=== PATIENT | female | born 1990 | race African-American/Black ===

== ENCOUNTER 2017-01-09 14:11 | Outpatient (CLI) | payer BC, MEDICAID | END 2017-01-09 15:40 | disposition admitted as inpatient to this hospital (09) | LOC: LC 14:11 | PROVIDERS: ATTEND Obstetrics & Gynecology | PROC: 4A1HXCZ Monitoring of Products of Conception, Cardiac Rate, External Approach (ICD-10-PCS; principal; 2017-01-09) | DX: Z34.93 Encounter for supervision of normal pregnancy, unspecified, third trimester (principal); Z36 Encounter for antenatal screening of mother; Z3A.35 35 weeks gestation of pregnancy | CPT/HCPCS: 59025 ==

== ENCOUNTER 2017-01-12 17:27 | Outpatient (CLI) | payer BC, MEDICAID ==
[2017-01-12 18:12] LABS: APPEARANCE,URINE SLIGHTLY-CLOUDY; BILIRUBIN,URINE NEGATIVE (NEGATIVE); GLUCOSE, URINE NEGATIVE (NEGATIVE); KETONES,URINE NEGATIVE (NEGATIVE); LEUKOCYTE ESTERASE,URINE TRACE (NEGATIVE); NITRITE,URINE NEGATIVE (NEGATIVE); PROTEIN,URINE NEGATIVE (NEGATIVE); URINE SPECIFIC GRAVITY 1.008; UROBILINOGEN,URINE NEGATIVE mg/dL (<2.0)
[2017-01-12 18:30] LABS: URINE BARBITURATES SCREEN NEGATIVE; URINE METHADONE SCREEN NEGATIVE; URINE OPIATES LOW NEGATIVE; URINE PHENCYCLIDINE SCREEN NEGATIVE
[2017-01-12 18:52] LABS: ABSOLUTE EOSINOPHILS # (AUTO) 0.1 10^3/uL (0.0-0.6); ABSOLUTE LYMPHOCYTES (AUTO) 1.8 10^3/uL (0.5-4.7); ABSOLUTE MONOCYTES (AUTO) 0.7 10^3/uL (0.1-1.4); ABSOLUTE NEUT (AUTO) 9.5 10^3/uL (1.7-8.2); BASOPHILS % (AUTO) 0.3 % (0-2); EOSINOPHILS % (AUTO) 0.6 % (0-6); HEMATOCRIT 40.7 % (36.0-47.0); HEMOGLOBIN 13.1 g/dL (12.0-15.5); HGB HCT DIFFERENCE -1.4; LYMPHOCYTES % (AUTO) 15.2 % (13-45); MEAN CORPUSCULAR HEMOGLOBIN 27.3 pg (27.0-33.4); MEAN CORPUSCULAR HGB CONC 32.2 g/dL (32.0-36.0); MEAN CORPUSCULAR VOLUME 85 fl (80-97); RED BLOOD COUNT 4.79 10^6/uL (3.72-5.28); RED CELL DISTRIBUTION WIDTH 14.9 % (11.5-14.0); SEGMENTED NEUTROPHILS % (AUTO) 77.9 % (42-78); WHITE BLOOD COUNT 12.2 10^3/uL (4.0-10.5)
[2017-01-12 19:10] LABS: ALANINE AMINOTRANSFERASE 30 U/L (9-52); ALBUMIN 3.4 g/dL (3.5-5.0); ALKALINE PHOSPHATASE 176 U/L (38-126); ANION GAP 11 (5-19); ASPARTATE AMINO TRANSFERASE 24 U/L (14-36); BILIRUBIN,DIRECT 0.3 mg/dL (0.0-0.4); BILIRUBIN,TOTAL 0.4 mg/dL (0.2-1.3); BLOOD UREA NITROGEN 7 mg/dL (7-20); CALCIUM 9.6 mg/dL (8.4-10.2); CARBON DIOXIDE 22 mmol/L (22-30); CHLORIDE 106 mmol/L (98-107); CREATININE RESULT 0.57 mg/dL (0.52-1.25); GLUCOSE 75 mg/dL (75-110); LDH 364 U/L (313-618); POTASSIUM 4.5 mmol/L (3.6-5.0); SODIUM 138.5 mmol/L (137-145); TOTAL PROTEIN 6.5 g/dL (6.3-8.2)
[2017-01-12 20:12] LABS: URINE CREATININE 64.1 mg/dL (16-327); URINE PROTEIN 15.6 mg/dL (<12)
--- NOTE | 2017-01-12 20:25 | Non Stress Test Report ---
Non Stress Test Datetime Report Generated by CPN: 01/12/2017 20:25 DEMOGRAPHIC EGA NST: 35.6 EGA NST: 35.3 INDICATION Indication for Study: Ordered by Provider Indication for Study: Ordered by Provider (Annotations: Data stored by CPN on behalf of user) MONITORING Monitor Explained: Monitor Explained; Test Explained; Patient Verbalized Understanding Monitor Explained: Monitor Explained; Test Explained; Patient Verbalized Understanding Time on Monitor: 01/12/2017 17:44 Time on Monitor: 01/09/2017 14:27 Time off Monitor: 01/12/2017 19:51 Time off Monitor: 01/09/2017 15:37 NST Duration: 127 NST Duration: 70 NST INTERVENTIONS NST Interventions: PO Hydration NST Interventions: None Physician Notified NST: Dr Harris BABY A: [id number] BABY A Movement : Present Movement : Present Contraction Frequency : irregular Contraction Frequency : none FHR Baseline : 135 FHR Baseline : 140 Accelerations : 15X15 Accelerations : 15X15 Decelerations : None Decelerations : None Variability : Moderate 6-25bpm Variability : Moderate 6-25bpm NST Review: Meets Criteria for Reactive NST NST Review: Meets Criteria for Reactive NST NST Review and Verified By : Shaheed Rachel RN NST Review and Verified By : Homar SEVERINO RN NST Results: Reactive NST Results: Reactive NST Results: Reactive NST REPORT Report Trigger: Send Report
[2017-01-13 21:57] LABS: URINE PROTEIN 8.7 mg/dL (<12)
== END 2017-01-12 20:01 | disposition home or self-care (01) ==
LOC: LC 17:27
PROVIDERS: ATTEND Obstetrics & Gynecology
DX: O47.9 False labor, unspecified (principal)
CPT/HCPCS: 36415; 59025; 80053; 80307; 81001; 82570; 83615; 84156; 84550; 85025

== ENCOUNTER 2017-01-30 20:43 | Inpatient (IN) | payer BC, MEDICAID ==
[2017-01-30] MEDS ORDERED: RINGERS SOLUTION,LACTATED 300 ML IV ONE (20:59)
[2017-01-30] MEDS ORDERED: MAG HYDROX/AL HYDROX/SIMETH SUSP 30 ML UDCUP PO PRN (20:59)
[2017-01-30] MEDS ORDERED: ACETAMINOPHEN 325 MG TABLET PO PRN (20:59)
[2017-01-30] MEDS ORDERED: RINGERS SOLUTION,LACTATED 1,000 ML IV PRN (20:59)
[2017-01-30] MEDS ORDERED: DINOPROSTONE 10 MG VAGINAL INSERT.SR PV ONE (20:59)
[2017-01-30] MEDS ORDERED: ZOLPIDEM TARTRATE 5 MG TABLET PO PRN (20:59)
[2017-01-30] MEDS ORDERED: DINOPROSTONE 10 MG VAGINAL INSERT.SR ONE (21:51)
[2017-01-30 21:56] LABS: ABSOLUTE MONOCYTES (AUTO) 0.5 10^3/uL (0.1-1.4); ABSOLUTE NEUT (AUTO) 10.1 10^3/uL (1.7-8.2); BASOPHILS % (AUTO) 0.2 % (0-2); EOSINOPHILS % (AUTO) 0.3 % (0-6); HEMATOCRIT 39.1 % (36.0-47.0); HEMOGLOBIN 12.9 g/dL (12.0-15.5); HGB HCT DIFFERENCE -0.4; LYMPHOCYTES % (AUTO) 15.8 % (13-45); MEAN CORPUSCULAR HEMOGLOBIN 28.1 pg (27.0-33.4); MEAN CORPUSCULAR HGB CONC 32.8 g/dL (32.0-36.0); MEAN CORPUSCULAR VOLUME 86 fl (80-97); RED BLOOD COUNT 4.57 10^6/uL (3.72-5.28); RED CELL DISTRIBUTION WIDTH 15.9 % (11.5-14.0); SEGMENTED NEUTROPHILS % (AUTO) 79.7 % (42-78); WHITE BLOOD COUNT 12.7 10^3/uL (4.0-10.5)
[2017-01-30 22:07] LABS: APPEARANCE,URINE CLEAR; BILIRUBIN,URINE NEGATIVE (NEGATIVE); GLUCOSE, URINE NEGATIVE (NEGATIVE); KETONES,URINE NEGATIVE (NEGATIVE); LEUKOCYTE ESTERASE,URINE TRACE (NEGATIVE); NITRITE,URINE NEGATIVE (NEGATIVE); PROTEIN,URINE NEGATIVE (NEGATIVE); URINE SPECIFIC GRAVITY 1.006; UROBILINOGEN,URINE NEGATIVE mg/dL (<2.0)
[2017-01-30 22:10] LABS: ALANINE AMINOTRANSFERASE 20 U/L (9-52); ALBUMIN 3.3 g/dL (3.5-5.0); ALKALINE PHOSPHATASE 184 U/L (38-126); ANION GAP 14 (5-19); ASPARTATE AMINO TRANSFERASE 18 U/L (14-36); BILIRUBIN,DIRECT 0.2 mg/dL (0.0-0.4); BILIRUBIN,TOTAL 0.3 mg/dL (0.2-1.3); BLOOD UREA NITROGEN 6 mg/dL (7-20); CALCIUM 9.4 mg/dL (8.4-10.2); CARBON DIOXIDE 15 mmol/L (22-30); CHLORIDE 107 mmol/L (98-107); CREATININE RESULT 0.69 mg/dL (0.52-1.25); GLUCOSE 192 mg/dL (75-110); LDH 361 U/L (313-618); SODIUM 135.8 mmol/L (137-145); TOTAL PROTEIN 6.5 g/dL (6.3-8.2); URIC ACID 4.6 mg/dL (2.5-6.2)
[2017-01-30 22:38] LABS: URINE BARBITURATES SCREEN NEGATIVE; URINE METHADONE SCREEN NEGATIVE; URINE OPIATES LOW NEGATIVE; URINE PHENCYCLIDINE SCREEN NEGATIVE
[2017-01-31] MEDS ORDERED: MISOPROSTOL 0.1 MG TABLET ONE (12:30)
[2017-01-31] MEDS ORDERED: MISOPROSTOL 0.1 MG TABLET PO SCH (14:00)
[2017-01-31] MEDS ORDERED: DINOPROSTONE 10 MG VAGINAL INSERT.SR ONE (20:08)
[2017-01-31] MEDS ORDERED: ZOLPIDEM TARTRATE 5 MG TABLET ONE (23:16)
[2017-01-31] MEDS ORDERED: ZOLPIDEM TARTRATE 5 MG TABLET PO ONE (23:45)
[2017-02-01 09:22] LABS: ABSOLUTE LYMPHOCYTES (AUTO) 1.6 10^3/uL (0.5-4.7); ABSOLUTE MONOCYTES (AUTO) 0.4 10^3/uL (0.1-1.4); BASOPHILS % (AUTO) 0.3 % (0-2); EOSINOPHILS % (AUTO) 0.2 % (0-6); HEMATOCRIT 42.1 % (36.0-47.0); HEMOGLOBIN 13.9 g/dL (12.0-15.5); HGB HCT DIFFERENCE -0.4; LYMPHOCYTES % (AUTO) 12.5 % (13-45); MEAN CORPUSCULAR HEMOGLOBIN 28.1 pg (27.0-33.4); MEAN CORPUSCULAR HGB CONC 32.9 g/dL (32.0-36.0); MEAN CORPUSCULAR VOLUME 85 fl (80-97); MONOCYTES % (AUTO) 3.2 % (3-13); RED BLOOD COUNT 4.94 10^6/uL (3.72-5.28); RED CELL DISTRIBUTION WIDTH 15.9 % (11.5-14.0); SEGMENTED NEUTROPHILS % (AUTO) 83.8 % (42-78); WHITE BLOOD COUNT 13.1 10^3/uL (4.0-10.5)
[2017-02-01] MEDS ORDERED: OXYTOCIN/NORMAL SALINE 1,000 ML IV PRN (09:31)
[2017-02-01] MEDS ORDERED: RINGERS SOLUTION,LACTATED 300 ML IV ONE (09:31)
[2017-02-01] MEDS ORDERED: RINGERS SOLUTION,LACTATED 1,000 ML IV PRN (09:31)
[2017-02-01] MEDS ORDERED: OXYTOCIN/NORMAL SALINE 20 UNIT/1,000 ML RTUINJ ONE ×2 (09:31→19:43)
[2017-02-01 09:35] LABS: ALANINE AMINOTRANSFERASE 21 U/L (9-52); ALBUMIN 3.6 g/dL (3.5-5.0); ALKALINE PHOSPHATASE 198 U/L (38-126); ANION GAP 12 (5-19); ASPARTATE AMINO TRANSFERASE 21 U/L (14-36); BILIRUBIN,DIRECT 0.3 mg/dL (0.0-0.4); BILIRUBIN,TOTAL 0.6 mg/dL (0.2-1.3); BLOOD UREA NITROGEN 8 mg/dL (7-20); CALCIUM 10.1 mg/dL (8.4-10.2); CARBON DIOXIDE 18 mmol/L (22-30); CHLORIDE 106 mmol/L (98-107); CREATININE RESULT 0.74 mg/dL (0.52-1.25); GLUCOSE 152 mg/dL (75-110); LDH 381 U/L (313-618); POTASSIUM 4.1 mmol/L (3.6-5.0); SODIUM 136.4 mmol/L (137-145); URIC ACID 4.8 mg/dL (2.5-6.2)
--- NOTE | 2017-02-01 09:55 | L&D Progress Notes ---
PROGRESS NOTES Datetime Report Generated by CPN: 02/01/2017 09:55 PROGRESS NOTE Procedures: Sterile Vag Exam Plan: Continue Present Management; Induction Informed Consent Obtained: Vaginal Delivery; Induction of Labor; Risks, Benefits and Alternatives Discussed Vital Signs : Reviewed Comment: 26 yo admitted for GDM/GHTN EDC8 EGA 38.5 resolved polyhydramnios last 24 hour protein- 283 01/20/17 abdomen nontender FHTS 150s average variability cervidil removed cervical exam /-2 uterine ctxs irregular start pitocin after 1 hour from cervidil removal anticipate poc reviewed VAGINAL EXAM Dilatation: 3 Effacement: 80 Station: -2 MEMBRANES Membranes: Intact FETUS A FHR - Baseline: 155 Monitoring: External US Variability: Moderate 6-25bpm Accelerations: 15X15 Decelerations: None FHR Category: Category I : 38.5 Estimated Weight (gm): 4000 SIGNATURE SIGNATURE: [id number];14,[id number] SIGNATURE: [id number] Assignment: Ernestina Kumar MD Signature: with User ID: [email or web address] : with User ID: [email or web address]
--- NOTE | 2017-02-01 14:51 | L&D Progress Notes ---
PROGRESS NOTES Datetime Report Generated by CPN: 02/01/2017 14:51 PROGRESS NOTE Procedures: Sterile Vag Exam Plan: Continue Present Management Informed Consent Obtained: Vaginal Delivery; Risks, Benefits and Alternatives Discussed Vital Signs : Reviewed Comment: 26 yo admitted for GDM/ GHTN 38.5 ctxs q 2-3 min pitocin discontinued pt repositioned encouraged bladder emptying pain management discussed anticipate VAGINAL EXAM Dilatation: 3 Effacement: 90 Station: -1 FETUS A FHR - Baseline: 120 Monitoring: External US Variability: Moderate 6-25bpm Accelerations: 15X15 Decelerations: Late; Prolonged FHR Category: Category I : 38.5 FETUS C SIGNATURE: [id number];[id number] Assignment: Ernestina Kumar MD Signature: with User ID: [email or web address] : with User ID: [email or web address]
[2017-02-01] MEDS ORDERED: EPHEDRINE SULFATE INJ 50 MG/1 ML AMPULE ONE (15:19)
[2017-02-01] MEDS ORDERED: BUPIVACAINE HCL 0.25 % INJ/PF (2.5 MG/1 ML) 30 ML VIAL ONE (15:20)
[2017-02-01] MEDS ORDERED: FENTANYL/BUPIVACAINE/NS/PF 200 MCG/100 ML RTUINJ EPI ONE (15:20)
[2017-02-01] MEDS ORDERED: ACETAMINOPHEN 325 MG TABLET PO ONE (16:00)
[2017-02-01] MEDS ORDERED: ACETAMINOPHEN 325 MG TABLET ONE ×2 (16:04→17:46)
[2017-02-01] MEDS ORDERED: FENTANYL CITRATE INJ/PF 100 MCG/2 ML AMPUL ONE (17:30)
[2017-02-01] MEDS ORDERED: LIDOCAINE 2% INJ-PF (20 MG/ML) 10 ML AMPUL ONE (17:33)
[2017-02-01] MEDS ORDERED: FENTANYL CITRATE INJ/PF 100 MCG/2 ML AMPUL IV ONE (17:35)
--- NOTE | 2017-02-01 17:37 | L&D Progress Notes ---
PROGRESS NOTES Datetime Report Generated by CPN: 02/01/2017 17:36 PROGRESS NOTE Vital Signs : Reviewed Comment: pt reports increased urge to push epidural in place cervical exam 4/90/-1 FHTs reactive 120s pt repositioned fentanyl 100 mcg and epidural bolus for pain management FETUS A FHR - Baseline: 120 Monitoring: External US Variability: Moderate 6-25bpm Accelerations: 15X15 Decelerations: None FHR Category: Category I FETUS C SIGNATURE: [id number];14,[id number] Assignment: Ernestina Kumar MD Signature: with User ID: [email or web address] : with User ID: [email or web address]
[2017-02-01] MEDS ORDERED: MISOPROSTOL 0.2 MG TABLET ONE (19:43)
[2017-02-01] MEDS ORDERED: LIDOCAINE 1% INJ-PF (10 MG/ML) 30 ML SDV ONE (19:43)
[2017-02-02] MEDS ORDERED: ZOLPIDEM TARTRATE 5 MG TABLET PO PRN ×2 (01:15→10:05)
[2017-02-02] MEDS ORDERED: PSEUDOEPHEDRINE HCL 30 MG TABLET PO PRN (01:15)
[2017-02-02] MEDS ORDERED: MEASLES,MUMPS&RUBELLA VACC/PF 0.5 ML VIAL SUBCUT PRN ×2 (01:15→10:06)
[2017-02-02] MEDS ORDERED: OXYTOCIN/NORMAL SALINE 1,000 ML IV PRN (01:15)
[2017-02-02] MEDS ORDERED: DIBUCAINE 1% OINTMENT 28 GM TP PRN (01:15)
[2017-02-02] MEDS ORDERED: NA PHOS,M-B/NA PHOS,DI-BA (ADULT) 133 ML ENEMA PR PRN (01:15)
[2017-02-02] MEDS ORDERED: DIPHENHYDRAMINE HCL 25 MG CAPSULE PO PRN (01:15)
[2017-02-02] MEDS ORDERED: ACETAMINOPHEN 650 MG SUPP.RECT PR PRN (01:15)
[2017-02-02] MEDS ORDERED: BENZOCAINE/MENTHOL AEROSOL SPRAY 56 ML TOP PRN (01:15)
[2017-02-02] MEDS ORDERED: PROMETHAZINE HCL INJ 25 MG/1 ML VIAL IV PRN ×2 (01:15→15:12)
[2017-02-02] MEDS ORDERED: ACETAMINOPHEN WITH CODEINE #3 TABLET PO PRN ×2 (01:15)
[2017-02-02] MEDS ORDERED: PROMETHAZINE HCL 25 MG TABLET PO PRN (01:15)
[2017-02-02] MEDS ORDERED: PROMETHAZINE HCL 25 MG SUPP.RECT PR PRN (01:15)
[2017-02-02] MEDS ORDERED: DIPH/PERTUSS(ACELL)/TETANUS VAC/PF 0.5 ML SYR (>=10YO) IM PRN ×2 (01:15→10:05)
[2017-02-02] MEDS ORDERED: MAGNESIUM HYDROXIDE SUSP 30 ML UDCUP PO PRN ×2 (01:15→10:06)
[2017-02-02] MEDS ORDERED: GLYCERIN/WITCH HAZEL LEAF 1 EACH MED..PAD TP PRN (01:15)
--- NOTE | 2017-02-02 03:35 | Delivery Summary ---
Del Sum A-C Datetime Report Generated by CPN: 02/02/2017 03:35 DELIVERY PERSONNEL DELIVERY PERSONNEL: [id number];[id number];[id number] Delivery Doctor:: Ernestina Kumar MD Labor and Delivery Nurse:: Cynthia Mustafa RNwindows systems admin Nurse:: Ying Gupta RN Nursery Nurse:: Jasmine Quiroga RN MSN Nursery Nurse:: Ivanna Guadarrama RN Energy Derivatives Trader/DENTAL COORDINATOR: Montez Ertel, DENTAL COORDINATOR MATERNAL INFORMATION Delivery Anesthesia: Epidural Medications After Delivery: Pitocin Bolus-Please Comment; Other-Please Comment Meds After Delivery Comment: Cytotec 1000 mcg IL Estimated Blood Loss (ml): 350 Maternal Complications: None; Prolonged Second Stage > 2 Hrs Provider Comments: VFI delivered in DENISE presentation, no nuchal cord. Shoulders and body delivered w/o difficulty. Cord doubly clamped and cut and infant to maternal abd for NRP. Placenta delivered intact spontaneously. Unterine exploration negative. 1000mcg of cytotec given IL for uterine tone. Apgars and weight pending. Perineal laceration repaired with good hemostasis. FF at U. Mother and baby stable upon provider leaving the room. LABOR SUMMARY EDC: 02/10/2017 00:00 No. Babies in Womb: 1 Attempted: No Labor Anesthesia: Epidural LABOR INFORMATION Reason for Induction: Gestational Hypertension; Maternal Diabetes Onset of Labor: 02/01/2017 17:00 Complete Dilatation: 02/01/2017 20:39 Cervical Ripening Agents: Cervidil; Cytotec @ Oxytocin: Induction Group B Beta Strep: negative (Annotations: Data stored by [facility] on behalf of user) Steroids Given: None Reason Steroids Not Administered: Not Applicable MEMBRANES Membranes Rupture Method: Artificial Rupture of Membranes: 02/01/2017 12:45 Length of Rupture (hr): 11.77 Amniotic Fluid Color: Clear Amniotic Fluid Amount: Moderate Amniotic Fluid Odor: Normal STAGES OF LABOR Stage 1 hr: 3 Stage 1 min: 39 Stage 2 hr: 3 Stage 2 min: 52 Stage 3 hr: 0 Stage 3 min: 3 Total Time in Labor hr: 7 Total Time in Labor min: 34 VAGINAL DELIVERY Episiotomy: None Laceration Extension: Second Degree Laceration Type: Perineal Laceration Repair: Yes Laceration Repair Note: 2nd degree ML laceration repaired with good hemostasis Sponge Count Correct: N/A Sharps Count Correct: N/A CSECTION DELIVERY Primary Indication: N/A Secondary Indication: N/A CSection Incidence: N/A Labor: N/A Elective: N/A CSection Incision: N/A BABY A INFORMATION Infant Delivery Date/Time: 02/02/2017 00:31 Method of Delivery: Vaginal Born in Route : No : N/A Forceps: N/A Vacuum Extraction: N/A Shoulder Dystocia : No PRESENTATION/POSITION BABY A Presentation: Cephalic Cephalic Presentation: Vertex Vertex Position: Right Occipital Anterior Breech Presentation: N/A PLACENTA INFORMATION BABY A Placenta Delivery Time : 02/02/2017 00:34 Placenta Method of Delivery: Spontaneous Placenta Status: Delivered SCORES BABY A Heart Rate 1 min: >100 bpm Resp Effort 1 min: Good Cry Reflex Irritability 1 min: Cough or Sneeze or Pulls Away Muscle Tone 1 min: Active Motion Color 1 min: Body [place], Extremities Blue Resuscitation Effort 1 min: Tactile Stimulation SCORE 1 MIN: 9 Heart Rate 5 min: >100 bpm Resp Effort 5 min: Good Cry Reflex Irritability 5 min: Cough or Sneeze or Pulls Away Muscle Tone 5 min: Active Motion Color 5 min: Body [place], Extremities Blue Resuscitation Effort 5 min: Tactile Stimulation SCORE 5 MIN: 9 INFANT INFORMATION BABY A Gestational Age at Delivery: 38.6 Gestational Status: Early Term- 37- 38.6 Weeks Infant Outcome : Liveborn Condition : Stable Infant Sex: Female IDENTIFICATION BABY A Verification Date/Time: 02/02/2017 00:49 ID Band Number: [id number] Mother's Name Verified: Yes RN Verifying Infant: Keagan Gaytan RN Additional Verifying Personnel: D. Mar Yanne WEIGHT/LENGTH BABY A Birthweight (gm): 4120 Weight (lb): 9 Infant Weight (oz): 1 Length (in): 21.00 Length (cm): 53.34 CORD INFORMATION BABY A No. Cord Vessels: 3 Nuchal Cord : N/A Cord Blood Taken: Yes-For Eval (Mom's Blood Type - or O+) Suction: Mouth; Nose ASSESSMENT BABY A Skin to Skin: Yes Skin to Skin Time (min): 60 BABY B INFORMATION : N/A SIGNATURES Signature: with User ID: [email or web address]
--- NOTE | 2017-02-02 03:45 | Admission Physical ---
Datetime Report Generated by CPN: 02/02/2017 03:45 CURRENT ADMISSION Hx Assessment: The History has been Reviewed and is Current Chief Complaint: Scheduled Induction of Labor Indication for Induction: Gestational HTN; Other Indication for Induction- Other: Gestational diabetes-A2 Admit Plan: Initiate Labor Induction Protocol ALLERGIES Medication Allergies: No Medication Allergies: latex (01/30/2017) Medication Allergies: latex (01/09/2017) Medication Allergies: latex (02/16/2014) Latex: Latex Allergies Food Allergies: N/A Environmental Allergies: N/A OBSTETRICAL HISTORY EDC: 02/10/2017 00:00 : 1 Para: 0 Term: 0 : 0 SAB: 0 IAB: 0 Ectopic: 0 Livin Cesareans: 0 VBACs: 0 Multiple Births: 0 Gestational Diabetes: Yes Rh Sensitization: No Incompetent Cervix: No [place]: No Infertility: No ART Treatment: No Uterine Anomaly: No IUGR: No Hx Previous C/S: No Macrosomia: No Hx Loss/Stillborn: No PIH: No Hx : No Placenta Previa/Abruption: No Depression/PP Depression: No PTL/PROM: No Post Hemorrhage: No Current Procedures: Ultrasound; NST Obstetrical History Comments: G1--current (gDM, obesity (hx polyhydramnios-resolved) SEE RECORDS Alcohol: No Marijuana : No Cocaine: No Other Illicit Drugs: No Cigarettes: Former Smoker. [id number] Cigarette Comments: quit 2013 MEDICAL HISTORY Diabetes: Yes Diabetes Type: Gestational Diabetes Blood Transfusion: No Pulmonary Disease (Asthma, TB): No Breast Disease: No Hypertension: Yes Tender Coordinator Surgery: No Heart Disease: No Hosp/Surgery: No Autoimmune Disorder: No Anesthetic Complications: No Kidney Disease: No Abnormal Pap Smear: No Neuro/Epilepsy: No Psychiatric Disorders: No Other Medical Diseases: No Hepatitis/Liver Disease: No Significant Family History: No Varicosities/Phlebitis: No Trauma/Violence : No Thyroid Dysfunction: No INFECTIOUS HISTORY Gonorrhea: No Genital Herpes: No Chlamydia: No Tuberculosis: No Syphilis: No Hepatitis: No HIV/AIDS Exposure: No Rash or Viral Illness: No HPV: No PHYSICAL EXAM General: Normal HEENT: Normal Neurologic: Normal Thyroid: Normal Heart: Normal Lungs: Normal Breast: Normal Back: Normal Abdomen: Normal Genitourinary Exam: Normal Extremities: Normal DTRs: Normal Pelvic Type: Adequate Physical Exam Comments: EFW 8 1/2 pounds pt noncompliant with glyburide nl preeclampsia labs. FS 135 2 hr pp tonight GBS neg VAGINAL EXAM Dilatation: 3 Dilatation: 3 Effacement: 90 Effacement: 80 Station: -1 Station: -2 MEMBRANES Membranes: Intact FETUS A EGA: 38.4 Monitoring: External US FHR Category: Category I Estimated Weight (gm): 4000 Admit Comment: GHTN, GDM-cervidil induction PLANS FOR LABOR AND DELIVERY Labor and Delivery: None Pain Management: None; Natural Feeding Preference: Both Benefit of Breast Feed Discussed: Yes Circumcision: N/A INFORMED CONSENT Informed Consent Obtained: Vaginal Delivery; Risks, Benefits and Alternatives Discussed Informed Consent Obtained: Vaginal Delivery; Induction of Labor; Risks, Benefits and Alternatives Discussed Signature: with User ID: [email or web address]
[2017-02-02] MEDS ORDERED: IBUPROFEN 800 MG TABLET PO SCH (06:00)
--- NOTE | 2017-02-02 08:49 | PDOC PROGRESS REPORT ---
Subjective-OB Subjective: Post Delivery Day: 26 year old. Denies any needs at this time Doing well, feels good, scant bleeding, voiding, baby in room Physical Exam (OB) Vital Signs: Temp Pulse Resp BP Pulse Ox 98.3 F 115 H 20 126/79 H 100 02/02/17 03:11 02/02/17 03:11 02/02/17 03:11 02/02/17 03:11 02/02/17 03:11 - PIH/Pre-Eclampsia Clonus: Negative Headache: Absent Epigastric Pain: No Visual Changes: No - Lochia Lochia Amount: Small 10-25 ml Lochia Color: Rubra/Red - Abdomen Description: Firm, Round Hernia Present: No Fundal Description: Firm, Midline Fundal Height: u/u - u/2 Objective-Diagnostic Laboratory: 02/01/17 09:08 02/01/17 09:08 02/01/17 02/01/17 09:08 09:08 WBC 13.1 H RBC 4.94 Hgb 13.9 Hct 42.1 MCV 85 MCH 28.1 MCHC 32.9 RDW 15.9 H Plt Count 359 Seg Neutrophils % 83.8 H Lymphocytes % 12.5 L Monocytes % 3.2 Eosinophils % 0.2 Basophils % 0.3 Absolute Neutrophils 11.0 H Absolute Lymphocytes 1.6 Absolute Monocytes 0.4 Absolute Eosinophils 0.0 Absolute Basophils 0.0 Sodium 136.4 L Potassium 4.1 Chloride 106 Carbon Dioxide 18 L Anion Gap 12 BUN 8 Creatinine 0.74 Est GFR ( Amer) > 60 Est GFR (Non-Af Amer) > 60 Glucose 152 H Uric Acid 4.8 Calcium 10.1 Total Bilirubin 0.6 AST 21 ALT 21 Alkaline Phosphatase 198 H Total Protein 7.0 Albumin 3.6 Assessment and Plan(PN) - Assessment and Plan (1) Gestational [-induced] hypertension without significant proteinuria , third trimester Is this a current diagnosis for this admission?: Yes (2) Gestational diabetes mellitus Qualifiers: Gestational diabetes mellitus control: diet-controlled Is this a current diagnosis for this admission?: Yes (3) Vaginal delivery Is this a current diagnosis for this admission?: Yes - Time Spent with Patient Time with patient: Less than 15 minutes Medications reviewed and adjusted accordingly: Yes - Disposition Anticipated Discharge: Home Within: within 48 hours
[2017-02-02] MEDS: FERROUS SULFATE 325 MG TABLET PO SCH ×2 (09:55→17:22)
[2017-02-02] MEDS: SENNOSIDES/DOCUSATE 8.6-50 MG 1 EACH TABLET PO SCH (09:55)
[2017-02-02] MEDS: FAMOTIDINE 20 MG TABLET PO SCH ×2 (09:56→21:37)
[2017-02-02] MEDS: PRENATAL VITAMIN W-O CA NO5/FE FUMARATE/FA CAPSULE PO SCH (09:56)
[2017-02-02] MEDS: DOCUSATE SODIUM 100 MG CAPSULE PO SCH ×2 (09:56→17:22)
[2017-02-02 10:35] LABS: HEMATOCRIT 34.4 % (36.0-47.0); HGB HCT DIFFERENCE 0.1; MEAN CORPUSCULAR HEMOGLOBIN 28.1 pg (27.0-33.4); MEAN CORPUSCULAR HGB CONC 33.4 g/dL (32.0-36.0); MEAN CORPUSCULAR VOLUME 84 fl (80-97); RED BLOOD COUNT 4.08 10^6/uL (3.72-5.28); RED CELL DISTRIBUTION WIDTH 15.7 % (11.5-14.0); WHITE BLOOD COUNT 16.8 10^3/uL (4.0-10.5)
[2017-02-02 10:43] LABS: HEMOGLOBIN 11.5 g/dL (12.0-15.5)
[2017-02-02] MEDS: IBUPROFEN 800 MG TABLET PO SCH ×2 (13:44→21:37)
[2017-02-03] MEDS: IBUPROFEN 800 MG TABLET PO SCH ×3 (05:17→21:53)
[2017-02-03 08:02] LABS: HEMATOCRIT 35.2 % (36.0-47.0); HEMOGLOBIN 11.6 g/dL (12.0-15.5); HGB HCT DIFFERENCE -0.4; MEAN CORPUSCULAR HEMOGLOBIN 27.9 pg (27.0-33.4); MEAN CORPUSCULAR HGB CONC 32.9 g/dL (32.0-36.0); MEAN CORPUSCULAR VOLUME 85 fl (80-97); RED BLOOD COUNT 4.15 10^6/uL (3.72-5.28); RED CELL DISTRIBUTION WIDTH 16.4 % (11.5-14.0); WHITE BLOOD COUNT 12.4 10^3/uL (4.0-10.5)
--- NOTE | 2017-02-03 09:29 | PDOC PROGRESS REPORT ---
Subjective-OB Subjective: Post Delivery Day:1 26 year old. Denies any needs at this time, lochia is stable, pain well controlled, voiding without difficulty. Physical Exam (OB) Vital Signs: Temp Pulse Resp BP Pulse Ox 97.6 F 84 16 117/86 H 100 02/03/17 07:22 02/03/17 07:22 02/03/17 07:22 02/03/17 07:22 02/03/17 07:22 Intake & Output 02/02/17 02/03/17 02/04/17 06:59 06:59 06:59 Intake Total 392 Balance 392 - PIH/Pre-Eclampsia DTR's: 2 + Clonus: Negative Headache: Absent Epigastric Pain: No Visual Changes: No - Lochia Lochia Amount: Small 10-25 ml Lochia Color: Rubra/Red - Abdomen Description: Soft, Distended Hernia Present: No Fundal Description: Firm Fundal Height: u/u - u/2 Objective-Diagnostic Laboratory: 02/03/17 07:27 02/01/17 09:08 02/02/17 02/03/17 10:27 07:27 WBC 16.8 H 12.4 H RBC 4.08 4.15 Hgb 11.5 L D 11.6 L Hct 34.4 L 35.2 L MCV 84 85 MCH 28.1 27.9 MCHC 33.4 32.9 RDW 15.7 H 16.4 H Plt Count 294 306 Assessment and Plan(PN) - Assessment and Plan (1) Gestational [-induced] hypertension without significant proteinuria , third trimester Is this a current diagnosis for this admission?: YesPlan: monitor for s/sx (2) Gestational diabetes mellitus Qualifiers: Gestational diabetes mellitus control: diet-controlled Trimester: third trimester Qualified Code(s): O24.410 - Gestational diabetes mellitus in , diet controlled Is this a current diagnosis for this admission?: YesPlan: pp f/u (3) Vaginal delivery Is this a current diagnosis for this admission?: YesPlan: routine pp care - Time Spent with Patient Time with patient: Less than 15 minutes Critical Time spent with patient: Less than 15 minutes Medications reviewed and adjusted accordingly: Yes - Disposition Anticipated Discharge: Home Within: within 24 hours
[2017-02-03] MEDS: PRENATAL VITAMIN W-O CA NO5/FE FUMARATE/FA CAPSULE PO SCH (10:12)
[2017-02-03] MEDS: DOCUSATE SODIUM 100 MG CAPSULE PO SCH ×2 (10:12→17:34)
[2017-02-03] MEDS: FERROUS SULFATE 325 MG TABLET PO SCH ×2 (10:12→17:34)
[2017-02-03] MEDS: FAMOTIDINE 20 MG TABLET PO SCH ×2 (10:12→21:53)
[2017-02-03] MEDS: SENNOSIDES/DOCUSATE 8.6-50 MG 1 EACH TABLET PO SCH (10:12)
[2017-02-04] MEDS: IBUPROFEN 800 MG TABLET PO SCH (05:01)
[2017-02-04] MEDS: PRENATAL VITAMIN W-O CA NO5/FE FUMARATE/FA CAPSULE PO SCH (09:34)
[2017-02-04] MEDS: FAMOTIDINE 20 MG TABLET PO SCH (09:34)
[2017-02-04] MEDS: SENNOSIDES/DOCUSATE 8.6-50 MG 1 EACH TABLET PO SCH (09:34)
[2017-02-04] MEDS: FERROUS SULFATE 325 MG TABLET PO SCH (09:34)
[2017-02-04] MEDS: DOCUSATE SODIUM 100 MG CAPSULE PO SCH (09:34)
--- NOTE | 2017-02-04 09:36 | PDOC DISCHARGE SUMMARY ---
Final Diagnosis Discharge Date: 02/04/17 - Final Diagnosis (1) Gestational [-induced] hypertension without significant proteinuria , third trimester Is this a current diagnosis for this admission?: Yes (2) Gestational diabetes mellitus Is this a current diagnosis for this admission?: Yes (3) Vaginal delivery Is this a current diagnosis for this admission?: Yes Discharge Data - Discharge Medication Home Medications: Pnv No.122/Iron/Folic Acid [ Multi Tablet] 1 each PO DAILY 01/09/17 Docusate Sodium [Colace 100 mg Capsule] 100 mg PO BID #30 capsule 02/04/17 Ibuprofen [Motrin 800 mg Tablet] 800 mg PO Q8 #60 tablet 02/04/17 Gestational Age: 38.6 Reason(s) for Admission: Onset of Labor, PIH, Gestional Diabetes Procedures: NST Intrapartum Procedure(s): Spontaneous Vaginal Delivery Complication(s): Laceration-Perineal Laceration-Degree: 2nd - Data Baby 1 Female at 1 minute: 9 at 5 minutes: 9 Weight: 4120 kg Home with Mother: Yes Complications: No - Diagnosis Test Laboratory: Temp Pulse Resp BP Pulse Ox 97.9 F 82 16 133/81 H 100 02/04/17 07:29 02/04/17 07:29 02/04/17 07:29 02/04/17 07:29 02/04/17 07:29 01/30/17 01/30/17 02/01/17 09:25 20:58 09:08 RBC 4.57 4.94 Hgb 12.9 13.9 Hct 39.1 42.1 Urine Opiates Screen NEGATIVE 02/02/17 02/03/17 10:27 07:27 RBC 4.08 4.15 Hgb 11.5 L D 11.6 L Hct 34.4 L 35.2 L Urine Opiates Screen - Discharge information/Instructions Discharge Activity: Activity As Tolerated, Pelvic Rest, No tub bath Discharge Diet: Regular Disposition: HOME, SELF-CARE Follow up with: [facility] in: 1, Weeks
[2017-02-04 10:27] VITALS: BP 147/90
== END 2017-02-04 12:20 | disposition home or self-care (01) | DRG 775 ==
LOC: LR 20:43 → 2S 02-02 03:43
PROVIDERS: ADMIT Specialist; ATTEND Student in an Organized Health Care Education/Training Program
PROC: 4A1HXCZ Monitoring of Products of Conception, Cardiac Rate, External Approach (ICD-10-PCS; 2017-01-30)
PROC: 4A1HXCZ Monitoring of Products of Conception, Cardiac Rate, External Approach (ICD-10-PCS; 2017-01-30)
PROC: 3E0P7GC Introduction of Other Therapeutic Substance into Female Reproductive, Via Natural or Artificial Opening (ICD-10-PCS; 2017-01-30)
PROC: 3E033VJ Introduction of Other Hormone into Peripheral Vein, Percutaneous Approach (ICD-10-PCS; 2017-01-31)
PROC: 10E0XZZ Delivery of Products of Conception, External Approach (ICD-10-PCS; principal; 2017-02-02)
PROC: 0KQM0ZZ Repair Perineum Muscle, Open Approach (ICD-10-PCS; 2017-02-02)
DX: O13.4 Gestational [pregnancy-induced] hypertension without significant proteinuria, complicating childbirth (principal); Z68.41 Body mass index [BMI] 40.0-44.9, adult; O24.425 Gestational diabetes mellitus in childbirth, controlled by oral hypoglycemic drugs; O70.1 Second degree perineal laceration during delivery; O63.1 Prolonged second stage (of labor); O99.214 Obesity complicating childbirth; E66.9 Obesity, unspecified; Z3A.38 38 weeks gestation of pregnancy; Z37.0 Single live birth; Z91.14 Patient's other noncompliance with medication regimen; Z91.040 Latex allergy status; Z87.891 Personal history of nicotine dependence
CPT/HCPCS: 36415; 80053; 80307; 81001; 82962; 83615; 84550; 85025; 85027; 86592; 86850; 86900; 86901; J2590; J3010; J3490